=== PATIENT | female | born 1935 | race Caucasian/White ===

== ENCOUNTER 2017-08-10 17:53 | Emergency (ER) | payer OTHER ==
[~2017-08-10] VITALS: Ht 160 cm; Wt 81.7 kg
[~2017-08-10 17:53] MED LIST: ACETAMINOPHEN-1 EAC1 PO; APAP500 PO; ASPIR 8181 MG PO; AUGMENTIN 875-1 EACH PO; AUGMENTIN 875875 MG PO; BACTRIM DS TAB1 EACH PO; CLARITIN10 MG PO; DITROPAN XL10 M1; FISH OIL 1,001000 M1 PO; HYDROCODONE-AP1 EAC6 PO; KEFLEX500 MG PO; MAGOX 400400 MG PO; MULTIVITAMINS PO; NEURONTIN 300M300 M2 PO; OSTERA TABLET1 EAC1 PO; PACERONE 200 M200 M1 PO; SENNA PO; ULTRAM 50MG TAB50 MG PO; UNICOMPLEX M TA1 TA1 PO; VITAMIN D5000 UNIT PO
[2017-08-10] MEDS ORDERED: AMIODARONE HCL100 MG PO (18:04)
[2017-08-10] MEDS ORDERED: RENA-VITE RX T1 EACH PO (18:04)
[2017-08-10] MEDS ORDERED: ALPHA LIPOIC AC50 M1 PO (18:04)
[2017-08-10 18:56] LABS: URINE BILIRUBIN NEGATIVE (Negative); URINE BLOOD NEGATIVE (Negative); URINE CLARITY CLEAR; URINE COLOR YELLOW; URINE GLUCOSE-RANDOM NEGATIVE (Negative); URINE KETONES NEGATIVE (Negative); URINE LEUKOCYTES-REFLEX NEGATIVE (Negative); URINE NITRITE-REFLEX NEGATIVE (Negative); URINE PROTEIN NEGATIVE (Negative); URINE UROBILINOGEN 0.2 E.U./dl (0.2-1.0)
[2017-08-10 21:58] VITALS: BP 177/66
== END 2017-08-10 21:59 | disposition home or self-care (01) ==
LOC: M.ERS 17:53
PROVIDERS: Nurse Practitioner Family
DX: S70.01XA Contusion of right hip, initial encounter (principal); S46.911A Strain of unspecified muscle, fascia and tendon at shoulder and upper arm level, right arm, initial encounter; W18.39XA Other fall on same level, initial encounter; Y93.89 Activity, other specified; Y92.091 Bathroom in other non-institutional residence as the place of occurrence of the external cause; Y99.8 Other external cause status

== ENCOUNTER 2019-05-15 08:36 | Emergency (ER) | payer OTHER ==
[~2019-05-15] VITALS: Ht 162.6 cm; Wt 78.7 kg
[~2019-05-15 08:36] MED LIST changes: +ALPHA LIPOIC AC50 M1 PO; +AMIODARONE HCL100 MG PO; +RENA-VITE RX T1 EACH PO
[2019-05-15 08:58] LABS: ABSOLUTE BASOPHILS 0.1 thou/uL (0.0-0.2); ABSOLUTE EOSINOPHILS 0.1 thou/uL (0.0-0.7); ABSOLUTE LYMPHOCYTES 1.6 thou/uL (0.8-5.3); ABSOLUTE MONOCYTES 0.7 thou/uL (0.0-1.2); ABSOLUTE NEUTROPHILS 6.7 thou/uL (1.6-8.1); BASOPHILS 0.9 %; EOSINOPHILS 1.4 %; HEMATOCRIT 42.2 % (37.0-47.0); HEMOGLOBIN 14.4 gm/dL (12.0-15.0); LYMPHOCYTES 17.5 %; MCH 32.5 pg (26.0-34.0); MCHC 34.2 g/dL (28.0-37.0); MCV 95.1 fL (80.0-100.0); MPV 7.9 fl. (7.2-11.1); NUCLEATED RBCS 0 /100WBC; PLATELET COUNT* 326 thou/uL (150-400); POLYS 72.2 %; RBC 4.44 mil/uL (4.20-5.00); RDW-CV 15.7 % (10.5-14.5); WBC 9.3 thou/uL (4.0-11.0)
[2019-05-15 09:08] LABS: ANION GAP 8 mmol/L (7-16); BUN 10 mg/dL (7-18); CALCIUM 8.9 mg/dL (8.5-10.1); CHLORIDE 104 mmol/L (98-107); CO2 28 mmol/L (21-32); CREATININE 0.9 mg/dL (0.6-1.3); GLUCOSE 94 mg/dL (70-99); SODIUM 140 mmol/L (136-145)
[2019-05-15 09:17] LABS: ALBUMIN 2.8 g/dL (3.4-5.0); ALKALINE PHOSPHATASE 109 U/L (46-116); SGOT 19 U/L (15-37); SGPT 22 U/L (30-65); TOTAL BILIRUBIN 0.5 mg/dL (<0.1-1.0); TOTAL PROTEIN 7.1 g/dL (6.4-8.2); TROPONIN-I LEVEL <0.06 ng/mL (<0.06)
[2019-05-15] MEDS ORDERED: MANNOSE50 GM PO (09:43)
[2019-05-15 10:18] VITALS: BP 107/49
--- NOTE | 2019-05-15 14:11 | EKG ---
[place] [address] ELECTROCARDIOGRAM REPORT Name: MORENA BENSON Room: [facility]#: [id number] Admission: 05/15/19 Attend Phys: Discharge: 05/15/19 Date of : 37 Report #: [id number] THIS REPORT FOR: //name// [facility] ED Test Date: 2019-05-15 Test Time: 08:44:48 Pat Name: MORENA BENSON Department: Room: Gender: F Morning Babysitter: DAYOTN : 1935 Requested By: Stefan Lyons Order Number: [id number] MD: Danny Alonso Measurements Intervals [place] Rate: 57 P: 17 NC: 56 QRS: -12 QRSD: 84 T: 8 QT: 455 QTc: 443 Interpretive Statements Sinus rhythm Atrial premature complexes Short NC interval Abnormal R-wave progression, early transition Inferior infarct, old Artifact in lead(s) I,II,aVR,aVL,aVF,V1 Compared to ECG 07/31/2015 15:04:46 Atrial premature complex(es) now present Short NC interval now present Myocardial infarct finding now present Electronically Signed On 05-15-2019 14:11:18 WAX MOLDER by Danny Alonso [email or web address] <ELECTRONICALLY SIGNED> By: Danny Alonso MD, FACC 05/15/19 1411 0844 0844 Danny Alonso MD, FAC /EPI
== END 2019-05-15 10:19 | disposition home or self-care (01) ==
LOC: M.ERS 08:36
PROVIDERS: Emergency Medicine Emergency Medical Services
DX: S80.212A Abrasion, left knee, initial encounter (principal); S80.211A Abrasion, right knee, initial encounter; M54.2 Cervicalgia; M19.90 Unspecified osteoarthritis, unspecified site; G62.9 Polyneuropathy, unspecified; Z90.49 Acquired absence of other specified parts of digestive tract; W18.39XA Other fall on same level, initial encounter; Y93.89 Activity, other specified; Y92.091 Bathroom in other non-institutional residence as the place of occurrence of the external cause; Y99.8 Other external cause status

== ENCOUNTER 2019-07-11 07:03 | Inpatient (IN) | payer OTHER ==
[~2019-07-11] VITALS: Ht 157.5 cm; Wt 77.1 kg
[~2019-07-11 07:03] MED LIST changes: +MANNOSE50 GM PO
[2019-07-11 07:04] VITALS: BP 116/59
[2019-07-11 08:24] LABS: URINE BILIRUBIN NEGATIVE (Negative); URINE BLOOD TRACE (Negative); URINE CLARITY CLEAR; URINE COLOR YELLOW; URINE GLUCOSE-RANDOM NEGATIVE (Negative); URINE KETONES NEGATIVE (Negative); URINE LEUKOCYTES-REFLEX NEGATIVE (Negative); URINE NITRITE-REFLEX NEGATIVE (Negative); URINE PROTEIN NEGATIVE (Negative); URINE SPECIFIC GRAVITY <= 1.005 (1.005-1.030); URINE UROBILINOGEN 0.2 E.U./dl (0.2-1.0)
[2019-07-11 08:27] LABS: HEMATOCRIT 44.8 % (37.0-47.0); HEMOGLOBIN 15.2 gm/dL (12.0-15.0); MCH 31.9 pg (26.0-34.0); MCHC 33.9 g/dL (28.0-37.0); MCV 94.3 fL (80.0-100.0); MPV 8.2 fl. (7.2-11.1); NUCLEATED RBCS 0 /100WBC; PLATELET COUNT* 295 thou/uL (150-400); RBC 4.75 mil/uL (4.20-5.00); RDW-CV 15.2 % (10.5-14.5); WBC 14.6 thou/uL (4.0-11.0)
[2019-07-11 09:38] LABS: CALCIUM 8.3 mg/dL (8.5-10.1); CREATININE 1.1 mg/dL (0.6-1.3); POTASSIUM 3.8 mmol/L (3.5-5.1)
[2019-07-11 09:42] LABS: ALBUMIN 3.2 g/dL (3.4-5.0); TOTAL BILIRUBIN 0.8 mg/dL (<0.1-1.0); TOTAL PROTEIN 7.7 g/dL (6.4-8.2)
[2019-07-11 09:57] LABS: ABSOLUTE LYMPHOCYTES 0.7 thou/uL (0.8-5.3); ABSOLUTE MONOCYTES 0.7 thou/uL (0.0-1.2); ABSOLUTE NEUTROPHILS 13.1 thou/uL (1.6-8.1); PLATELET ESTIMATE ADEQUATE
--- NOTE | 2019-07-11 11:12 | NUR ---
0910- patient desats to 88% on RA, placed on NC@2L
--- NOTE | 2019-07-11 11:19 | EKG ---
[place] [address] ELECTROCARDIOGRAM REPORT Name: MORENA BENSON Room: [facility]#: [id number] Admission: 07/11/19 Attend Phys: Discharge: Date of : 37 Report #: [id number] THIS REPORT FOR: //name// 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: : 1935 Requested By: Stefan Lyons Order Number: [id number] MD: Arnel Villalpando Measurements Intervals [place] Rate: 87 P: 0 TX: 168 QRS: -3 QRSD: 73 T: -26 QT: 594 QTc: 715 Interpretive Statements Wandering atrial pacemaker Low voltage, precordial leads Left ventricular hypertrophy Borderline T abnormalities, diffuse leads Prolonged QT interval Compared to ECG 05/15/2019 08:44:48 Wandering atrial pacemaker now present Left ventricular hypertrophy now present Prolonged QT interval now present Electronically Signed On 07-11-2019 11:19:12 BRAND LEADER by Arnel Villalpando [email or web address] <ELECTRONICALLY SIGNED> By: Arnel Villalpando MD, FAC 07/11/19 1119 0754 [id number] Arnel Villalpando MD, [facility] /EPI
[2019-07-11 12:34] LABS: INFLUENZA A ANTIGEN Negative (Negative); INFLUENZA B ANTIGEN Negative (Negative)
[2019-07-11 14:20] VITALS: BP 117/60
[2019-07-11 15:30] VITALS: BP 122/72
[2019-07-11 15:50] LABS: BE -3.6 mmol/L (-2 to +3); PCO2 32.2 mmHg (35.0-45.0); PO2 86.5 mmHg (75.0-100.0)
--- NOTE | 2019-07-11 16:09 | NUR ---
CM ASSESSMENT: VISITED WITH PT AND GRANDDAUGHTER IN ROOM. THEY STATE THAT PT HAS CAREGIVER THROUGH PRIVATE DUTY FROM 8 AM TO 8 PM. PT ABLE TO GET TO TO AND USES A WALKER. CAREGIVER ASSISTS WITH MEALS,COOKING AND BATHING. GRANDDTR AND CAREGIVER ASSIST WITH MEDICATIONS. PT HAS [facility]
--- NOTE | 2019-07-11 17:17 | NUR ---
PATIENT PRESENTED TO ROOM 210 THIS AFTERNOON FROM ER PER CART. PATIENT IS ALERT AND ORIENTED X 3 TO 4 AND FORGETFUL. PATIENT PLACED ON TELE MONITOR. TELE SHOWS SR WITH PACS. SHE DENIES PAIN AND DISCOMFORT. O2 SATS IN THE 80S ON ROOM AIR. PATIENT PLACED ON O2 AT 2 LITERS. PATIENT ORIENTED TO ROOM. INSTRUCTED ON FALL PRECAUTIONS. SHE IS UP WITH 2 PERSON ASSIST TO THE BATHROOM. IV FLUIDS STARTED PER ORDER.
[2019-07-11 20:00] VITALS: BP 127/52
[2019-07-12] VITALS: BP 124/47
[2019-07-12 01:30] VITALS: BP 152/90
[2019-07-12 04:00] VITALS: BP 110/54
[2019-07-12 05:04] LABS: HEMATOCRIT 39.8 % (37.0-47.0); HEMOGLOBIN 13.5 gm/dL (12.0-15.0); MCH 32.4 pg (26.0-34.0); MCHC 33.9 g/dL (28.0-37.0); MCV 95.7 fL (80.0-100.0); MPV 8.8 fl. (7.2-11.1); RBC 4.16 mil/uL (4.20-5.00); RDW-CV 14.9 % (10.5-14.5); WBC 9.3 thou/uL (4.0-11.0)
[2019-07-12 05:29] LABS: ALBUMIN 2.8 g/dL (3.4-5.0); CALCIUM 8.2 mg/dL (8.5-10.1); POTASSIUM 3.4 mmol/L (3.5-5.1); TOTAL BILIRUBIN 0.5 mg/dL (<0.1-1.0); TOTAL PROTEIN 6.6 g/dL (6.4-8.2)
--- NOTE | 2019-07-12 07:10 | NUR ---
CHANGE OF SHIFT, BEDSIDE REPORT GIVEN PATIENT SEEN AT BEDSIDE, IN BED RESTING ASSUMED PATIENT CARE
[2019-07-12 08:00] VITALS: BP 143/62
[2019-07-12 12:10] VITALS: BP 124/70
[2019-07-12 20:00] VITALS: BP 152/52
[2019-07-13] VITALS: BP 164/64
[2019-07-13 04:00] VITALS: BP 127/57
[2019-07-13 05:17] LABS: ABSOLUTE BASOPHILS 0.1 thou/uL (0.0-0.2); ABSOLUTE EOSINOPHILS 0.1 thou/uL (0.0-0.7); ABSOLUTE LYMPHOCYTES 1.6 thou/uL (0.8-5.3); ABSOLUTE NEUTROPHILS 6.8 thou/uL (1.6-8.1); BASOPHILS 0.6 %; EOSINOPHILS 1.2 %; HEMATOCRIT 37.1 % (37.0-47.0); HEMOGLOBIN 12.5 gm/dL (12.0-15.0); LYMPHOCYTES 16.4 %; MCH 32.2 pg (26.0-34.0); MCHC 33.6 g/dL (28.0-37.0); MCV 95.7 fL (80.0-100.0); MONOCYTES 10.4 %; MPV 8.5 fl. (7.2-11.1); NUCLEATED RBCS 0 /100WBC; PLATELET COUNT* 266 thou/uL (150-400); POLYS 71.4 %; RBC 3.88 mil/uL (4.20-5.00); WBC 9.5 thou/uL (4.0-11.0)
[2019-07-13 06:08] LABS: ALBUMIN 2.6 g/dL (3.4-5.0); CALCIUM 8.1 mg/dL (8.5-10.1); CREATININE 0.9 mg/dL (0.6-1.3); MAGNESIUM 1.9 mg/dL (1.8-2.4); POTASSIUM 3.4 mmol/L (3.5-5.1); TOTAL BILIRUBIN 0.4 mg/dL (<0.1-1.0); TOTAL PROTEIN 6.2 g/dL (6.4-8.2)
--- NOTE | 2019-07-13 07:10 | NUR ---
CHANGE OF SHIFT, BESIDE REPORT GIVEN PATIENT SEEN AT BEDSIDE, IN BED ASLEEP ASSUMED PATIENT CARE BED ALARM ON
--- NOTE | 2019-07-13 07:45 | NUR ---
PATIENT BEING ASSISTED FROM BSC TO CHAIR PATIENTS LEGS WEAK AND BUCKLED AND NURSE UNABLE TO HOLD UP ALL PATIENT WEIGHT PATIENT LANDED ON THE FLOOR ON HER BACK STAFF TO TO ASSIST PATIENT TO BED PATIENT WITHOUT VISUAL INJURY TO BACK PATIENT DOES COMPLAIN OF BACK PAIN VITAL SIGNS 129/60, 69, 12, 98% 2L WILL NOTIFY AND CONTINUE TO WATCH
[2019-07-13 08:00] VITALS: BP 129/60
[2019-07-13 12:32] VITALS: BP 128/57
[2019-07-13 16:06] VITALS: BP 154/68
--- NOTE | 2019-07-13 18:49 | NUR ---
I ASSUMED CARE OF THE PATIENT AT 1300 FROM [facility]. SHE IS ALERT AND ORIENTED X4 AND IS UP WITH MAX ASSIST. BED IS IN THE LOW LOCKED POSITION AND CALL LIGHT IS IN REACH. HOURLY ROUNDING IS COMPLETED AND PATIENT NEEDS ARE MET. PAIN IS DENIED. PATIENT WENT FOR XRAY. SHE HAS A CAREGIVER AT THE BEDSIDE MY ENTIRE SHIFT. COLOSTOMY BAG WAS FILLED AND CHANGED. WILL CONTINUE TO MONITOR.
[2019-07-14] VITALS: BP 171/63
--- NOTE | 2019-07-14 05:50 | NUR ---
CAREGIVER AT BEDSIDE UNTIL 2200. PATIENT FELL ON DAYSHIFT PREVIOUS SHIFT. FALL PRECAUTIONS IN PLACE. PATIENT REQUIRES 2 PEOPLE, MAX ASSIST TO AMBULATE TO COMMODE. PATIENT HAS SLEPT FOR THE MAJORITY OF THE SHIFT. NO SIGNIFICANT EVENTS THIS SHIFT.
[2019-07-14 08:46] VITALS: BP 154/76
[2019-07-14 12:15] VITALS: BP 138/58
--- NOTE | 2019-07-14 13:02 | NUR ---
CM spoke with Pt's nurse, per nurse, when CGs leave at 8pm, Pt is home alone. CM to discuss dispo with granddtr/DPOA, awaiting call back
[2019-07-14 16:00] VITALS: BP 130/49
[2019-07-14 20:15] VITALS: BP 100/60
[2019-07-15] VITALS (7 sets, daily range): BP systolic 115–179; BP diastolic 43–86
--- NOTE | 2019-07-15 04:40 | NUR ---
ASSUMED CARE AT 1915H, ON NC AT 2LPM AND TOLERATED.PT SOMETIMES CONFUSE AND THINKS SHE'S IN THE SABIANISM.NO DISTRESS NOTED.KEPT SAFE AND BED ALARM ON.SHE WAS INCONTINENT SOMETIMES.BOWEL SOUND SOMETIMES WAS HYPERACTIVE.COLOSTOMY DRAINING WELL.CONTINUE CARING AND TOWARD GOALS.
--- NOTE | 2019-07-15 09:51 | NUR ---
Spoke with granddtr and caregiver in room, plan is for Pt to return home with 12hr/day caregivers and granddtr and cousin will rotate staying with Pt overnight. dtr to updated [facility] care [facility] [place]. [facility] [place], CM to fax referral at [facility].
[2019-07-16 04:12] VITALS: BP 153/68
--- NOTE | 2019-07-16 05:03 | NUR ---
PT. PROGRESSING TOWARDS GOALS. POSSIBLE DISCHARGE TODAY WITH HOME HEALTH. TURNED Q2H TO MAINTAIN SKIN INTEGRITY. SINUS RHYTHM ON MONITOR. ROOM AIR. INCONTINENT OF URINE AT TIMES. CALL LIGHT REMAINS IN REACH, WILL CONTINUE TO MONITOR.
[2019-07-16 05:30] LABS: HEMATOCRIT 42.9 % (37.0-47.0); HEMOGLOBIN 14.3 gm/dL (12.0-15.0); MCH 31.7 pg (26.0-34.0); MCHC 33.3 g/dL (28.0-37.0); MCV 94.9 fL (80.0-100.0); MPV 8.9 fl. (7.2-11.1); RBC 4.52 mil/uL (4.20-5.00); RDW-CV 15.1 % (10.5-14.5); WBC 10.4 thou/uL (4.0-11.0)
[2019-07-16 05:54] LABS: ALBUMIN 2.7 g/dL (3.4-5.0); CALCIUM 8.3 mg/dL (8.5-10.1); CREATININE 0.8 mg/dL (0.6-1.3); MAGNESIUM 2.1 mg/dL (1.8-2.4); POTASSIUM 3.6 mmol/L (3.5-5.1); TOTAL BILIRUBIN 0.5 mg/dL (<0.1-1.0)
[2019-07-16 08:00] VITALS: BP 143/66
--- NOTE | 2019-07-16 09:30 | NUR ---
PT FAMILY MEMBER EXITED THE ROOM YELLING "SOMETHING'S WRONG,I NEED HELP." PT FOUND SITTING AT BEDSIDE COMMODE,UPRIGHT,HEAD DOWN,EYES CLOSED,UNRESPONSIVE,AND BREATHING WITH STRONG; STEADY PULSE.PT ASSISTED TO BED,VS,EKG AND BLOOD GLUCOSE TAKEN,SCALE OPERATOR CALLED. VSS AND BLOOD GLUCOSE WNP,EKG UNCHANGED FROM PREVIOUS. PT BECAME ALERT AND WAS ABLE TO ANSWER QUESTIONS APPROPRIATELY. RESIDENT AT BEDSIDE,NIH NEGATIVE. PHYSICIAN TO ROUND ON PT. FALL PRECAUTIONS IN PLACE.TM
--- NOTE | 2019-07-16 11:00 | NUR ---
[facility] now wanting Pt to go skilled, CM requested that PT/OT see Pt today. [facility] wants [facility], CM will fax referral.
[2019-07-16 12:13] VITALS: BP 104/49
--- NOTE | 2019-07-16 15:05 | EKG ---
[place] [address] ELECTROCARDIOGRAM REPORT Name: MORENA BENSON Room: [address] ADM IN ..#: [id number] Admission: 07/11/19 Attend Phys: Kita Guevara MD Discharge: Date of : 37 Report #: [id number] THIS REPORT FOR: //name// [facility] Test Date: 2019-07-16 Test Time: 09:36:48 Pat Name: MORENA BENSON Department: Room: [address] Gender: F Oem Sales Manager: [facility] : 1935 Requested By: Kita Guevara Order Number: [id number] Rony MD: Lalo Goetz Measurements Intervals [place] Rate: 67 P: 36 AR: 152 QRS: -6 QRSD: 74 T: 34 QT: 402 QTc: 425 Interpretive Statements Sinus rhythm Atrial premature complexes Low voltage, precordial leads Compared to ECG 07/11/2019 07:54:26 Atrial premature complex(es) now present Wandering atrial pacemaker no longer present Atrial-paced complex(es) or rhythm no longer present Left ventricular hypertrophy no longer present T-wave abnormality no longer present Prolonged QT interval no longer present Electronically Signed On 07-16-2019 15:05:01 HUMANE AGENT by Lalo Goetz [email or web address] <ELECTRONICALLY SIGNED> By: Lalo Goetz MD, [facility] 07/16/19 1505 [id number] [id number] Lalo Goetz MD, [facility] /EPI
--- NOTE | 2019-07-16 15:18 | 2DMMODE ---
[place] [address] 2 D/M-MODE ECHOCARDIOGRAM Name: MORENA BENSON Room: [address] IN [facility]#: [id number] Admission: 07/11/19 Attend Phys: Kita Guevara, Discharge: Date of : 37 Date of Service: 07/16/19 1517 Report #: [id number] THIS REPORT FOR: //name// APPROVED REPORT Study performed: 07/16/2019 13:54:25 EXAM: Comprehensive 2D, Doppler, and color-flow Echocardiogram Patient Location: In-Patient Room #: 210 BSA: 1.73 HR: 77 bpm Other Information Study Quality: Fair Indications Dyspnea 2D Dimensions IVSd: 11.63 (7-11mm) LVOT Diam: 20.20 (18-24mm) LVDd: 43.93 mm PWd: 11.24 (7-11mm) Ascending Ao: 29.74 (22-36mm) LVDs: 27.94 (25-40mm) Aortic Root: 26.64 mm Volumes Left Atrial Volume (Systole) LA ESV Index: 22.50 mL/m2 Aortic Valve AoV Peak Jack.: 1.55 m/s AO Peak Gr.: 9.64 mmHg LVOT Max P.00 mmHg AO Mean Gr.: 5.89 mmHg LVOT Mean P.32 mmHg LVOT Max V: 1.12 m/s AO V2 VTI: 30.17 cm LVOT Mean V: 0.69 m/s PEPE (VTI): 2.45 cm2 LVOT V1 VTI: 23.02 cm Mitral Valve E/A Ratio: 0.65 MV Decel. Time: 248.63 ms MV E Max Jack.: 0.86 m/s MV PHT: 72.10 [place] [address] 2 D/M-MODE ECHOCARDIOGRAM Name: MORENA BENSON Room: [address] IN [facility]#: [id number] Admission: 07/11/19 Attend Phys: Kita Guevara, Discharge: Date of : 37 Date of Service: 07/16/19 1517 Report #: [id number] MVA (PHT): 3.05 cm2 TDI E/Lateral E': 10.75 E/Medial E': 10.75 Medial E' Ajck.: 0.08 m/s Lateral E' Jack.: 0.08 m/s Pulmonary Valve PV Peak Jack.: 0.75 m/s PV Peak Gr.: 2.26 mmHg Tricuspid Valve RAP Estimate: 5.00 mmHg TR Peak Gr.: 25.11 mmHg RVSP: 30.11 mmHg PA Pressure: 30.11 mmHg Left Ventricle The left ventricle is normal size. There is normal LV segmental wall motion. There is normal left ventricular wall thickness. Left ventricular systolic function is normal. The left ventricular ejection fraction is within the normal range. LVEF is 55-60%. Grade I - abnormal relaxation pattern. Right Ventricle The right ventricle is normal size. The right ventricular systolic function is normal. Atria The left atrium size is normal. The right atrium size is normal. Aortic Valve Aortic valve is mildly calcified. No aortic regurgitation is present. No hemodynamically significant valvular aortic stenosis. Mitral Valve Moderate mitral annular calcification. Mild mitral regurgitation. No evidence of mitral valve stenosis. Tricuspid Valve The tricuspid valve is normal in structure. Mild tricuspid regurgitation. Pulmonic Valve The pulmonary valve is normal in structure. There is no pulmonic [place] [address] 2 D/M-MODE ECHOCARDIOGRAM Name: MORENA BENSON Room: [address]#: [id number] Admission: 07/11/19 Attend Phys: Kita Guevara, Discharge: Date of : 37 Date of Service: 07/16/19 1517 Report #: [id number] Great Vessels The aortic root is normal in size. IVC is normal in size and collapses >50% with inspiration. Pericardium There is no pericardial effusion. <Conclusion> The left ventricle is normal size. There is normal left ventricular wall thickness. Left ventricular systolic function is normal. The left ventricular ejection fraction is within the normal range. LVEF is 55-60%. Grade I - abnormal relaxation pattern. The right ventricle is normal size. The left atrium size is normal. Aortic valve is mildly calcified. No aortic regurgitation is present. No hemodynamically significant valvular aortic stenosis. Moderate mitral annular calcification. Mild mitral regurgitation. No evidence of mitral valve stenosis. The tricuspid valve is normal in structure. Mild tricuspid regurgitation. IVC is normal in size and collapses >50% with inspiration. There is no pericardial effusion. There is normal LV segmental wall motion. <ELECTRONICALLY SIGNED> By: Lalo Goetz MD, FACC 07/16/19 1517 [id number] Lalo Goetz MD, FACC /INF
[2019-07-16 16:00] VITALS: BP 114/58
[2019-07-16 20:00] VITALS: BP 93/69
[2019-07-16 23:46] VITALS: BP 116/53
[2019-07-17 04:07] VITALS: BP 104/35
[2019-07-17 05:05] VITALS: BP 111/49
--- NOTE | 2019-07-17 05:22 | NUR ---
PT CARE ASSUMED 1930. SAT MAINTAINED IN O2. ALERT AND ORIENTED X4 BUT CONFUSED. CALL LIGHT WITHIN REACH AND BED IN LOW POSITION. DENIES PAIN AND SOB. HOURLY ROUNDIG DONE FOR PT SAFETY.
[2019-07-17 08:00] VITALS: BP 108/54
--- NOTE | 2019-07-17 08:32 | NUR ---
Faxed updated therapy notes to [facility], continue to await decision to accept and insurance auth. Following.
--- NOTE | 2019-07-17 09:44 | NUR ---
Spoke with Pt's granddtr, considering home with hospice. CM faxed hospice referral to [facility] per granddtr's request. Granddtr plans to meet with hospice today and determine what dispo she wants. Following.
[2019-07-17 12:00] VITALS: BP 122/44
[2019-07-17 16:00] VITALS: BP 140/67
--- NOTE | 2019-07-17 20:05 | NUR ---
PT IS RESTING AT THIS TIME WITH ROHIT AT BEDSIDE. UPON MORNING MEDICATIONS GRANDDAUGHTER REQUESTED PAIN MEDICATIONS FOR PT STATING THAT PT IS DEMENTED AND HAS ALZHEIMERS SO SHE DOESN'T KNOW TO ASK FOR HER MEDICATIONS. I EDUCATED GRAND ALMAZAN ON IMPORTANCE OF PT SHOWING OUTWARDS SIGNS OF PAIN OR BEING ABLE TO VOCALIZE PAIN. PT WAS RESTING WITH EYES CLOSED AT THIS TIME ATER BATH. 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 PT GIVEN PO TRAMADOL AND LIDOCAINE PATCHES PLACED TO BACK. UPON REASSESSMENT PT WAS STILL AT BASELINE ANSWERING APPROPRIATELY. PT IS NOW A MAX ASSIST,LAWRENCE LIFT. VSS ON 2L NC. FALL PRECAUTIONS IN PLACE
[2019-07-17 20:10] VITALS: BP 129/51
[2019-07-18] VITALS: BP 128/58
[2019-07-18 04:11] VITALS: BP 103/40
--- NOTE | 2019-07-18 04:54 | NUR ---
PT CARE ASSUMED AT 1930. SAT MAINTAINED IN O2. ORIENTED TO HERSELF AND CONFUSED BUT EASILY REDIRECTABLE. C/O PAIN, MEDICATION GIVEN PER EMAR. CALL LIGHT WITHIN REACH AND BED IN LOW POSITION. HOURLY ROUNDING DONE FOR PT SAFETY.
[2019-07-18 08:00] VITALS: BP 108/45
--- NOTE | 2019-07-18 08:46 | NUR ---
JOURDAN spoke with Milagros from [facility], DME was delivered to the home last evening. Granddtr plans to take Pt home today and wants to transport. CM to fax dc orders once dc time arranged. CM updated Kaylee at [facility] of Pt's dispo
--- NOTE | 2019-07-18 11:29 | NUR ---
Pt discharging to home today with [facility], billier to hand picker and transport around 3pm. Updated Nohemi at [facility], will fax dc orders when available.
[2019-07-18] MEDS ORDERED: CEFDINIR300 MG PO (12:03)
[2019-07-18 12:10] VITALS: BP 108/45
[2019-07-18 12:11] VITALS: BP 122/47
--- NOTE | 2019-07-18 15:39 | NUR ---
VSS, ORIENTED TO SELF, SA ON TELE, MAX ASSIST, COLOSTOMY, HOURLY ROUNDING PERFORMED, POSSESSIONS AND CALL LIGHT WITHIN REACH. REC DISCHARGE ORDERS, REVIEWED WITH PATIENT AND GRANDDAUGHTER DPOA, GAVE SCRIPTS AND CARE NOTES, REMOVED TELE MONITOR AND IV WITHOUT COMPLICATION, PATIENT TAKEN IN WHEELCHAIR TO FRONT DOOR BY NURSING STAFF AND PICKED UP IN FAMILY CAR BY GRANDDAUGHTER.
== END 2019-07-18 14:20 | disposition hospice, home (50) | DRG 193 ==
LOC: M.ERS 07:03 → M.2W 11:18 → M.TBA-ER 11:18 → M.2W 14:31
PROVIDERS: Emergency Medicine Emergency Medical Services; Internal Medicine; ADMIT Internal Medicine
DX: J15.9 Unspecified bacterial pneumonia (principal); G93.41 Metabolic encephalopathy; E44.0 Moderate protein-calorie malnutrition; K56.7 Ileus, unspecified; F03.90 Unspecified dementia, unspecified severity, without behavioral disturbance, psychotic disturbance, mood disturbance, and anxiety; G62.9 Polyneuropathy, unspecified; Z66 Do not resuscitate; M19.90 Unspecified osteoarthritis, unspecified site; Z90.49 Acquired absence of other specified parts of digestive tract; Z79.899 Other long term (current) drug therapy; Z98.49 Cataract extraction status, unspecified eye; Z79.82 Long term (current) use of aspirin; Z79.2 Long term (current) use of antibiotics; Z93.3 Colostomy status; Z68.31 Body mass index [BMI] 31.0-31.9, adult